=== PATIENT | female | born 1985 | race Caucasian/White ===

== ENCOUNTER 2020-05-15 21:50 | Inpatient (IN) | payer BC, SELFPAY ==
[2020-05-15 22:04] VITALS: BP 102/69; PULSE 80
[2020-05-15 22:15] VITALS: BP 103/65; PULSE 82
[2020-05-15 22:30] VITALS: BP 110/67; PULSE 75
[2020-05-15 23:32] VITALS: BP 111/71; PULSE 81
--- NOTE | 2020-05-15 23:36 | OBADM ---
This patient, Candice Irving, admitted to the OB room Labor/Delivery/Recovery 106 for observation. Patient/family oriented to hospital policies and general routines including ID bracelet, bed and alarms, visiting hours, pain management, procedures, bathroom and other care routines, personal items, smoking policy, room service/diet, and visiting hours. Patient/Family are encouraged to report perceived risks to care and to ask questions if they do not understand what they are told or what they should do.
[2020-05-15 23:45] VITALS: BP 112/74; PULSE 83
[2020-05-15 23:49] VITALS: BMI 38.0
[2020-05-15 23:53] VITALS: TEMP 36.9
[2020-05-16] VITALS (173 sets, daily range): BP systolic 73–127; BP diastolic 31–80; PULSE 67–257; RESP 16–18; TEMP 36.2–36.9; O2SAT 94–100
[2020-05-16 00:07] LABS: Basophils Percent Auto 0.1 % (0.2-1.2); Eosinophils Absolute Auto 0.1 K/mm3 (0-0.3); Eosinophils Percent Auto 0.5 % (0-4.4); Hematocrit 34.4 % (37.0-47.0); Hemoglobin 12.1 g/dL (12.0-15.0); Immature Granulocyte Absolute 0.07 K/mm3 (0.00-0.031); Immature Granulocyte Percent A 0.6 % (0-0.5); Lymphocytes Absolute Auto 2.69 K/mm3 (0.9-3.2); Lymphocytes Percent Auto 24.7 % (18.3-44.2); Mean Corpuscular HGB Conc 35.2 g/dl (32-36); Mean Corpuscular Hemoglobin 30.9 pg (26-34); Mean Platelet Volume 10.6 fl (7.4-10.4); Monocytes Absolute Auto 0.7 K/mm3 (0.1-0.6); Monocytes Percent Auto 6.1 % (2.6-8.5); Neutrophils Absolute Auto 7.4 K/mm3 (1.3-6.7); Platelet Count Result 237 k/mm3 (150-375); Red Blood Count 3.91 M/mm3 (4.2-5.4); Red Cell Distribution Width 13.1 % (11.5-14.5); White Blood Count 10.9 K/mm3 (4.5-10.0)
[2020-05-16] MEDS: LACTATED RINGERS 1,000 ML 125 ML IV CONT ×4 (01:17→04:34)
--- NOTE | 2020-05-16 01:37 | P.PNAN_ITS ---
Anes - Eval Pre Procedure Procedure: labor epidural Date/Time: 05/16/20 01:37 Surgeon: la nena landis Pre Op Diagnosis: Contraction Patient Data Age: 34 Gender: F Height: 1.68 m Weight: 107 kg Last Vital Signs Temp 36.9 C 05/15/20 23:53 Pulse 88 05/16/20 01:35 BP 115/69 05/16/20 01:35 Allergies Allergy/AdvReac Type Severity Reaction Status Date / Time No Known Allergies Allergy Verified 04/25/20 14:20 Home Medications Medication Instructions Recorded Confirmed Type ergocalciferol (vitamin D2) 1,250 mcg PO WEEKLY 04/25/20 05/16/20 History [Vitamin D2] prenat.vits,shruthi,[id number] 1 tablet PO DAILY 04/25/20 05/16/20 History [ #2] Laboratory Tests 05/15/20 05/15/20 23:58 23:58 WBC 10.9 K/mm3 H K/mm3 (4.5-10.0) RBC 3.91 M/mm3 L M/mm3 (4.2-5.4) Hgb 12.1 g/dL g/dL (12.0-15.0) Hct 34.4 % L % (37.0-47.0) MCV 88.0 fl fl (80-100) MCH 30.9 pg pg (26-34) MCHC 35.2 g/dl g/dl (32-36) RDW 13.1 % % (11.5-14.5) Plt Count 237 k/mm3 k/mm3 (150-375) MPV 10.6 fl H fl (7.4-10.4) Immature Gran % (Auto) 0.6 % H % (0-0.5) Neut % (Auto) 68.0 % % (45.5-73.1) Lymph % (Auto) 24.7 % % (18.3-44.2) Barron % (Auto) 6.1 % % (2.6-8.5) Eos % (Auto) 0.5 % % (0-4.4) Baso % (Auto) 0.1 % L % (0.2-1.2) Lymph # (Auto) 2.69 K/mm3 K/mm3 (0.9-3.2) Barron # (Auto) 0.7 K/mm3 H K/mm3 (0.1-0.6) Eos # (Auto) 0.1 K/mm3 K/mm3 (0-0.3) Baso # (Auto) 0.0 K/mm3 K/mm3 (0.0-0.1) Abs Immat Gran (auto) 0.07 K/mm3 H K/mm3 (0.00-0.031) Absolute Neuts (auto) 7.4 K/mm3 H K/mm3 (1.3-6.7) Absolute Nucleated RBC 0.0 K/mm3 K/mm3 (0.0-0.012) Nucleated RBC % 0.0 % % (0.0-0.2) RPR Pending Patient hx anesthesia problems: none Family hx anesthesia problems: none [facility] Family History Family History Mother Cancer Father Hypertension High cholesterol FH: obesity Social History Social History Smoking status: Never smoker Substance use: never Spiritual care concerns: No Exam Day of Procedure 05/16/20 01:37
[2020-05-16] MEDS: PHENYLEPHRINE 1,000 MCG/10 ML SYRINGE 100 MCG IV PUSH ×4 (02:10→03:32)
[2020-05-16] MEDS: ONDANSETRON INJ 4 MG/2 ML VIAL IV PUSH (02:46)
[2020-05-16] MEDS: ePHEDrine sulfate INJ 50 MG/ML AMPUL IV PUSH ×2 (03:25→03:27)
--- NOTE | 2020-05-16 06:10 | PM.IMHP ---
H&P: HPI History of Present Illness Date/Time: 05/16/20 06:10 34-year-old 2 para 1001 whose last menstrual period was 08/16/2019, whose EDC is 05/22/2020, presents at 39 weeks gestation in active labor. has been uncomplicated to this point. Chief Complaint: labor at term Review of Systems Review of Systems: All systems reviewed & are unremarkable except as noted in HPI and below PMFSH Family History Family History Mother Cancer Father Hypertension High cholesterol FH: obesity Social History Social History Smoking status: Never smoker Substance use: never Spiritual care concerns: No Meds Home Medications and Allergies Home Medications Medication Instructions Recorded Confirmed Type ergocalciferol (vitamin D2) 1,250 mcg PO WEEKLY 04/25/20 05/16/20 History [Vitamin D2] prenat.vits,shruthi,cca-vcbq-aydby 1 tablet PO DAILY 04/25/20 05/16/20 History [ #2] Allergies Allergy/AdvReac Type Severity Reaction Status Date / Time No Known Allergies Allergy Verified 04/25/20 14:20 Vital Signs Vital Signs - 24 hr 05/15/20 22:04 05/15/20 22:15 05/15/20 22:30 Temperature Pulse Rate 80 82 75 Blood Pressure 102/69 103/65 110/67 Pulse Oximetry 05/15/20 23:32 05/15/20 23:45 05/15/20 23:53 Temperature 98.4 F Pulse Rate 81 83 Blood Pressure 111/71 112/74 Pulse Oximetry 05/16/20 00:01 05/16/20 01:13 05/16/20 01:35 Temperature Pulse Rate 81 84 88 Blood Pressure 127/75 101/75 115/69 Pulse Oximetry 05/16/20 01:40 05/16/20 01:42 05/16/20 01:44 Temperature Pulse Rate 100 99 Blood Pressure 90/60 L 105/73 Pulse Oximetry 100 05/16/20 01:45 05/16/20 01:46 05/16/20 01:48 Temperature Pulse Rate 98 98 105 H Blood Pressure 106/58 L 102/52 L 104/63 Pulse Oximetry 100 05/16/20 01:50 05/16/20 01:52 05/16/20 01:53 Temperature Pulse Rate 100 76 Blood Pressure 97/52 L 75/36 L Pulse Oximetry 100 05/16/20 01:55 05/16/20 01:56 05/16/20 01:57 Temperature Pulse Rate 76 83 91 Blood Pressure 84/41 L 81/54 L 100/68 Pulse Oximetry 98 05/16/20 01:59 05/16/20 02:00 05/16/20 02:02 Temperature 97.5 F L Pulse Rate 82 257 H 87 Blood Pressure 93/42 L 86/72 L 89/50 L Pulse Oximetry 94 98 05/16/20 02:04 05/16/20 02:07 05/16/20 02:08 Temperature Pulse Rate 78 72 75 Blood Pressure 90/49 L 84/31 L 91/59 L Pulse Oximetry 98 05/16/20 02:10 05/16/20 02:12 05/16/20 02:14 Temperature Pulse Rate 67 81 87 Blood Pressure 114/64 115/63 103/59 L Pulse Oximetry 100 05/16/20 02:16 05/16/20 02:17 05/16/20 02:18 Temperature Pulse Rate 86 88 Blood Pressure 104/62 116/67 Pulse Oximetry 99 05/16/20 02:20 05/16/20 02:22 05/16/20 02:24 Temperature Pulse Rate 85 84 86 Blood Pressure 108/55 L 96/60 L 98/54 L Pulse Oximetry 100 05/16/20 02:26 05/16/20 02:27 05/16/20 02:28 Temperature Pulse Rate 85 72 Blood Pressure 98/48 L 94/66 L Pulse Oximetry 100 05/16/20 02:30 05/16/20 02:32 05/16/20 02:33 Temperature Pulse Rate 77 78 Blood Pressure 118/62 105/56 L Pulse Oximetry 100 05/16/20 02:34 05/16/20 02:36 05/16/20 02:37 Temperature Pulse Rate 78 83 Blood Pressure 105/63 101/56 L Pulse Oximetry 100 05/16/20 02:38 05/16/20 02:41 05/16/20 02:42 Temperature Pulse Rate 80 82 Blood Pressure 111/62 98/52 L Pulse Oximetry 100 05/16/20 02:43 05/16/20 02:44 05/16/20 02:46 Temperature Pulse Rate 83 85 84 Blood Pressure 95/51 L 105/53 L 99/52 L Pulse Oximetry 05/16/20 02:47 05/16/20 02:48 05/16/20 02:50 Temperature Pulse Rate 85 79 Blood Pressure 93/50 L 101/56 L Pulse Oximetry 100 05/16/20 02:52 05/16/20 02:54 05/16/20 02:56 Temperature Pulse Rate 84 82 84 Blood Pressure 96/47 L 104/73 92/47 L Pul
[2020-05-16 07:03] LABS: Rapid Plasma Reagin Non-Reactive (NonReactive)
--- NOTE | 2020-05-16 07:47 | P.PNOB_ITS ---
OB - PN: Subj Subjective Date/time seen: 05/16/20 07:47 cx rim arom clear fhts ok OB - PN: Obj Data Labs CBC & Chem 7: 05/15/20 23:58 Labs: Laboratory Results - last 24 hr 05/15/20 05/15/20 05/15/20 23:58 23:58 23:58 WBC 10.9 H RBC 3.91 L Hgb 12.1 Hct 34.4 L MCV 88.0 MCH 30.9 MCHC 35.2 RDW 13.1 Plt Count 237 MPV 10.6 H Immature Gran % (Auto) 0.6 H Neut % (Auto) 68.0 Lymph % (Auto) 24.7 [place] % (Auto) 6.1 Eos % (Auto) 0.5 Baso % (Auto) 0.1 L Lymph # (Auto) 2.69 [place] # (Auto) 0.7 H Eos # (Auto) 0.1 Baso # (Auto) 0.0 Abs Immat Gran (auto) 0.07 H Absolute Neuts (auto) 7.4 H Absolute Nucleated RBC 0.0 Nucleated RBC % 0.0 RPR Non-reactive Blood Type B Positive Antibody Screen Negative OB - PN A/P Time Spent With Patient Time: Total time spent is greater than 50% in coordination of care (as documented) at patient's floor/unit and/or counseling patient:
--- NOTE | 2020-05-16 08:33 | PM.OBPRVD ---
OB - Delivery Note Procedure Delivery date: 05/16/20 Intrapartal events: None Induction method: none Delivery augmentation: rupture of membranes Delivery monitor: external FHT Route of delivery: Episiotomy description: None Laceration Description: None Specimen: No Quantitative Blood Loss (ml): 58 Disposition: floor Baby Date of : 05/16/20 Time of : 08:27 Weeks of gestation at delivery: 39 gender: Male presentation: vertex position: Right Occiput Anterior Placenta delivery description: Spontaneous cord vessel description: 3 Vessels and Nuchal Cord score one minute: 8 score five minutes: 9
[2020-05-16] MEDS: OXYTOCIN 30 UNITS/NS 500 ML 30 UNITS/500 ML BAG 125 UNITS IV CONT (09:22)
[2020-05-16] MEDS: IBUPROFEN 600 MG TABLET PO ×2 (09:31→20:00)
[2020-05-16] MEDS: WITCH HAZEL 40 PADS 1 PAD TOPICAL (09:32)
[2020-05-16] MEDS: BENZOCAINE 20% AER SPR (*SP) 56 GM CAN 1 SPRAY TOPICAL (09:32)
--- NOTE | 2020-05-16 10:40 | PC.NURSE ---
Patient transferred to post room #282 per wheelchair from labor and delivery. Support person present. Oriented to unit, room, information board, rooming in, admission packet and security measures. Patient verbalizes understanding.
--- NOTE | 2020-05-16 12:35 | PC.NURSE ---
Mother called out for assist with feeding. Consulted with patient, mother reports has fed well since . Mother had slight nipple discomfort with latch during most of the feeding. Both nipples are reddened, nipple care reviewed and lanolin provided. Reviewed infant feeding cues, frequencies, duration of feedings, feeding elimination flow sheet, and signs of adequate intake. Demonstrated stimulation techniques to wake infant for feeding. Assisted with infant to breast. Reviewed positioning/alignment in cross cradle, holding breast in U hold and guided asymmetrical latch on. Infant was able to latch correctly within a few attempts. Infant nursed eagerly, with steady draws and frequent swallowing noted. Reviewed signs of a correct latch, effective nursing and suck swallow ratio. was able to maintain latch. Mother reported tenderness at times, would push nipple out pushing tongue up then slipped to shallow latch. Demonstrated how to adjust latch more deeply while feeding. Mother quickly reports she can feel is latched more deeply and has minimal tenderness. Suggested to stimulate infant while feeding to keep awake and nursing effectively for increased stimulation and increased intake. Instructed mother to call out for RN assistance if she is unable to latch for feeding or she has discomfort with nursing. Instructed feeding should be initiated three hours from start of last feeding or if feeding cues are noted before. Mother voiced understanding of information shared.
[2020-05-16] MEDS: ACETAMINOPHEN 325 MG TABLET 650 MG PO (14:41)
[2020-05-17 00:07] VITALS: BP 102/66; PULSE 80; RESP 16; TEMP 36.8; O2SAT 99
[2020-05-17] MEDS: ACETAMINOPHEN 325 MG TABLET 650 MG PO (00:14)
[2020-05-17 03:50] VITALS: BP 117/50; PULSE 76; RESP 16; TEMP 36.6; O2SAT 99
[2020-05-17 04:11] LABS: Hematocrit 33.6 % (37.0-47.0); Hemoglobin 11.5 g/dL (12.0-15.0)
--- NOTE | 2020-05-17 06:18 | PM.OBPNVD ---
OB - PN: Subj Subjective Date/time seen: 05/17/20 06:18 Patient comments: no complaints and pain well controlled baby status: doing well and nursing well OB - PN: Obj Data Labs CBC & Chem 7: 05/17/20 03:56 Labs: Laboratory Results - last 24 hr 05/15/20 05/17/20 23:58 03:56 Hgb 11.5 L Hct 33.6 L RPR Non-reactive OB - PN A/P Plan day: 1 Plan: routine care Time Spent With Patient Time: Total time spent is greater than 50% in coordination of care (as documented) at patient's floor/unit and/or counseling patient: Time with patient: less than 15 minutes Review of Systems Review of Systems: All systems reviewed & are unremarkable except as noted in HPI and below Exam Const: General: no acute distress Eyes: General: appearance normal, both eyes and all related structures Neck: Neck: supple and no JVD Thyroid: thyroid normal Resp: Effort & Inspection: normal respiratory effort Auscultation: clear to auscultation bilaterally Cardio: Rate: regular rate Rhythm: regular rhythm GI: Inspection: non-distended GI Palp: Yes Soft to palpation, No Tenderness to palpation present (GI) and No Guarding due to palpation present (GI) Auscultation: normal bowel sounds : General: Yes bladder normal to palpation External Female Exam: normal external appearance Speculum Exam - Vagina: normal vaginal discharge and No vaginal bleeding Speculum Exam - Cervix: nontender Bimanual exam- vagina & uterus: bladder normal to palpation and No Cervical tenderness present OB/external & speculum: No vaginal bleeding Skin: General skin exam: no rashes or lesions noted Extrem: General: normal to inspection and no edema Psych: Mental Status: mental status grossly normal Affect: normal affect
--- NOTE | 2020-05-17 06:19 | PM.DS ---
DS: Admitting Diagnosis Admitting Diagnosis Admitting Diagnosis: term iup DS: Summary Hospital Course Hospital Course: unremarkable course Time Spent with Patient Time attestation: Total time spent providing and/or coordinating discharge services: Exam Const: General: no acute distress Eyes: General: appearance normal, both eyes and all related structures Neck: Neck: supple and no JVD Thyroid: thyroid normal Resp: Effort & Inspection: normal respiratory effort Auscultation: clear to auscultation bilaterally Cardio: Rate: regular rate Rhythm: regular rhythm GI: Inspection: non-distended GI Palp: Yes Soft to palpation, No Tenderness to palpation present (GI) and No Guarding due to palpation present (GI) Auscultation: normal bowel sounds : General: Yes bladder normal to palpation External Female Exam: normal external appearance Speculum Exam - Vagina: normal vaginal discharge and No vaginal bleeding Speculum Exam - Cervix: nontender Bimanual exam- vagina & uterus: bladder normal to palpation and No Cervical tenderness present OB/external & speculum: No vaginal bleeding Skin: General skin exam: no rashes or lesions noted Extrem: General: normal to inspection and no edema Psych: Mental Status: mental status grossly normal Affect: normal affect DS: Data Data Completed and Pending Labs on day of discharge: Labs from last 24 hours 05/17/20 05/15/20 03:56 23:58 Hgb 11.5 L Hct 33.6 L RPR Non-reactive Discharge Plan Discharge Attending physician on discharge: Devendra Zapata Discharging Clinician: Devendra Zapata Patient Disposition: Home, Self-Care Activity: may shower, no straining and pelvic rest Diet: heart healthy Patient Instructions: Antibiotic Form Stand Alone Forms: General Discharge Information Follow-up/Referrals: Devendra Zapata MD [Physician] - Discharge Medications: Continued ergocalciferol (vitamin D2) [Vitamin D2] 1,250 mcg (50,000 unit) Capsule 1,250 mcg PO WEEKLY RF: 0 #2 Tablet 1 tablet PO DAILY RF: 0 Date of admission: 05/15/20 23:39 Primary Care Provider: Jeronimo*Erick Admitting Provider: Devendra Zapata Attending physician on admission: Devendra Zapata Condition: Stable
[2020-05-17 07:20] VITALS: BP 103/69; PULSE 75; RESP 16; TEMP 36.7; O2SAT 97
--- NOTE | 2020-05-17 09:10 | PC.NURSE ---
Consult with pt., mother reports is eagerly feeding with more tenderness to left than right. Mother has infant to breast in cradle position with shallow latch and chin to chest. When released latch nipple is rounded on top and flat to bottom. Discussed infant head position and shallow latch impacts deep latch and her tenderness. Assisted with appropriate positioning/alignment using cross cradle and alignment of infant in front of nipple. eagerly latches on first attempt with long rhythmical draws and freq swallowing noted. Demonstrated how to adjust latch more deeply while feeding and how to assist with maintaining deep latch. Suggested to stimulate to keep infant nursing effectively for increased intake and to assist with maintaining deep latch. Mother quickly reports she can feel infant is latched more deeply and has minimal discomfort. Reviewed nipple care.
[2020-05-17] MEDS: IBUPROFEN 600 MG TABLET PO (10:01)
[2020-05-17] MEDS: MULTIVIT/MIN/PREN/FOL AC/IRON TABLET 1 TAB PO (10:01)
--- NOTE | 2020-05-17 10:10 | PC.NURSE ---
Mother is working with deeper latch, she is able to independently latch with appropriate positioning/alignment. She is feeding as required and waking to feed if needed. Infant has had at least 8 effective feedings in the past 24 hours, and is currently meeting outcomes for weight, output, jaundice and feeding frequencies. Mother states she feels confident to continue effective at home. Reviewed transition to breast milk, signs of adequate intake, and engorgement/relief. Instructed to call ICP if intake/output less than required. Reviewed regular medications mother is taking. Information provided per Jojo. Reviewed community resources on the [facility] website and in the Mom/Baby guide. Information on outpatient services provided. Mother has no further questions at this time.
--- NOTE | 2020-05-17 14:43 | WPDANLDPN2 ---
Anes-Prog Note L&D Date/Time: 05/17/20 14:43 Comfortable throughout: labor and delivery Neuraxial method: epidural Epidural/Spinal procedure site: clean & non-tender Neuro status: Neuro function grossly intact. Cardiovascular status: normal Respiratory status: normal Airway patency: baseline Mental status: baseline Post-Op hydration status: normal Vital Signs: Last Vital Signs Temp 98.1 F 05/17/20 07:20 Pulse 75 05/17/20 07:20 Resp 16 05/17/20 07:20 BP 103/69 05/17/20 07:20 Pulse Ox 97 05/17/20 07:20 Pain score (VAS): 0/10 Post-procedural complaints: none Patient feedback: Patient satisfied with anesthetic care.
--- NOTE | 2020-05-17 15:00 | PC.NURSE ---
Patient instructed on viewing the discharge video Mother & Baby Care, The First Two Weeks . Patient was given the opportunity and encouraged to ask questions. Patient verbalized understanding of information shared and has been given the mother/baby guide for home reference.
--- NOTE | 2020-05-18 09:45 | PC.NURSE ---
Mother called Services for questions. Mother stats she has supplemented 15 mls formula due to infant fussiness and questions if she should continue with supplement and begin pumping. Advised to continue to supplement and will be assessed at follow up visit, which mother states is in a few hours. Advised to initiate pumping after each feeding to stimulate milk supply and offer EBM as part of supplement. Mother reports she continues to struggle with latch at times. Reviewed she may return for assist as needed. Mother reports first child required supplement for the first few days until her milk came in. Reviewed mother went home at 24 hours and milk should transition by day 3-4. Requested mother to call back with updates or if questions/concerns.
[2020-05-18 10:52] VITALS: BP 110/70; PULSE 89; RESP 20; TEMP 36.8; O2SAT 100
== END 2020-05-17 15:30 | disposition home or self-care (01) | DRG 807 ==
LOC: ANHLDR 23:39 → ANHOB2 05-16 10:42
PROVIDERS: Admitting Provider Student in an Organized Health Care Education/Training Program; PCP Family Medicine; Visit Provider Obstetrics & Gynecology
DX: O69.81X0 Labor and delivery complicated by cord around neck, without compression, not applicable or unspecified (principal); Z37.0 Single live birth; Z3A.39 39 weeks gestation of pregnancy; O77.0 Labor and delivery complicated by meconium in amniotic fluid
CPT/HCPCS: 36415; 85014; 85018; 85025; 86592; 86850; 86900; 86901; A9270; J2370; J2405; J2590; J2795; J7120

== ENCOUNTER 2020-07-11 13:41 | Outpatient (RCR) | payer BC, SELFPAY ==
--- NOTE | 2020-07-11 14:30 | PC.NURSE ---
IN 1305 OUT 1410 HISTORY: Pt. delivered at [facility] at 40 weeks. had no complications after delivery. Mother had no complications after delivery. Infant is now 8 weeks old. Infant appears to be well cared for. Infant has been seen by ICP as scheduled. Infant last seen by ICP at 1 month. Mother reports: Mother has struggled with latching infant since . Infant had weight loss in the beginning and was supplemented. Mother pumped and used EBM/formula as part of supplement. then transitioned to for a few weeks and was feeding every three hours for 30-40 minutes and was satisfied after. Mother reports 2 weeks ago infant began to be on and off while feeding, sleeping during feeding and would take up to 1 hour to feed and did not appear to be satisfied. Mother reports was not emptying the breast with feedings and wanting to feed every 2 hours. Mother began pumping and bottle feeding. Mother has attempted feedings using a nipple shield, reporting infant is unable to maintain latch using shield. Mother was pumping 5 oz every three hours with 20-30 minutes of pumping, mother states supply has dropped to 4oz every three hours. is bottle feeding 4 oz and needs to increase to 5 oz. per feeding due to satisfaction. Now that is bottle feeding EBM/formula mother reports takes up to 30-40 minutes to nipple bottle. She has changed the flow size of the nipple due to spitting up. Mother works with paced feeding using a premie nipple. Mother is concerned with supply as she is returning to work in 2 weeks. Mother states she is content to pump and bottle feed if needed. Mother wishes: Mother would like for infant to breastfeed and empty breast and not have to supplement after and increase supply. Currently at 6+ wets per day and 4 + yellow seedy stools per day. weight: 8#1 Last Weight: 7#9 at one month per mother Post feeding weight: 11#14 OBSERVATION: is able to thrust tongue past gum ridge, back of tongue does not drop to a cupped position. Mother puts infant to breast in cross cradle,holding breast in U hold and guided asymmetrical latch on. Infant latched shallow to breast, is fussy and heavily grunts while feeding, and is on and off. Demonstrated how to adjust latch more deeply while infant is feeding and to give resistance and not allow to pull back to shallow latch. was very fussy for less than a minute and remained in a deep latch with good rhythmic draws and freq audible swallowing noted for burst during feeding and not consistent. Infant took long pauses, needing stimulation to return to effective suck swallow feeding pattern. Infant had a better latch after adjustment, he continued with on and off feeding less frequently. Infant has a more chewy suck than the long draws you would expect to see at 8 weeks. fed on both breasts 20 minutes each and then took 4 oz of EBM. Infant has a weak loose suck and does not have a strong suction to breast. Same is noted to bottle feeding. PLAN: Mother will put infant to one breast each feeding for 20 minutes to assist with increased stimulation of milk supply. Mother will work with maintaining a deeper latch and keeping in an effective suck swallow pattern. will be supplemented to satisfaction and mother will pump. Advised mother to discuss feeding pattern and spitting up after with ICP at next visit. Mother will call with further questions or concerns. Follow up /phone call scheduled for SaturdayJuly 18.
== END 2020-08-22 08:19 | disposition home or self-care (01) ==
LOC: ANHOBOP 13:41
PROVIDERS: PCP Family Medicine; Visit Provider Pediatrics
DX: Z39.1 Encounter for care and examination of lactating mother (principal)
CPT/HCPCS: 99212; G0463